=== PATIENT | female | born 1955 | race Caucasian/White ===

== ENCOUNTER → 2019-11-11 08:43 | Outpatient (CLI) | payer OTHER, SELFPAY ==
[2019-11-11 10:42] LABS: Coronavirus 19 IgG Antibody Negative (Negative); Coronavirus 19 IgM Antibody Negative (Negative)
== END ==
PROVIDERS: Visit Provider Surgery
DX: Z01.818 Encounter for other preprocedural examination (principal); Z12.11 Encounter for screening for malignant neoplasm of colon
CPT/HCPCS: 36415; 86328

== ENCOUNTER 2019-11-12 06:25 | Day surgery (SDC) | payer OTHER, SELFPAY ==
[2019-11-08 14:04] VITALS: BMI 35.2
--- NOTE | 2019-11-12 06:44 | HMH.GSHP ---
HPI HPI: Patient presents for follow-up colonoscopy due to history of multiple adenomatous polyps. She is under the care of Dr. Cohen. She is a 64-year-old lady. I had performed colonoscopy as initial screen in November 2013. At that time she had 7 tubular adenomas and 1 of them had high-grade dysplasia. She underwent follow-up colonoscopy on 04/05/2016. At that time she had a couple of tubular adenomas. Given the adenomatous polyps and previous history of multiple adenomatous polyps 1 of which had high-grade dysplasia I had recommended a 3-year follow-up. She is without complaints. [facility] History I have reviewed the patient's past medical history: Yes Medical History: Denies:: Cancer, Diabetes Mellitus Type 1, Diabetes Mellitus Type 2, Internal Pacemaker, MRSA *Have you ever received a pneumonia vaccine?: No *Have you received a flu vaccine this season?: Yes (2018) Laterality Cases: Left: Lumpectomy Other Surgeries: Yes: Colonoscopy. No: Pacemaker Amputation: No Fractures: No - *Social History Last grade of school completed: High school graduate Smoking Status: Current every day smoker Tobacco Type: cigarettes # Packs/Day (cigarettes): 1 Alcohol Intake: never Substance Use Type: denies use *Occupational Status:: retired Housing: house Household Members: significant other *Travel in the last 8 weeks: None Family Hx:: Unable to obtain Review of Systems - Review of Systems Review of systems:: pertinent systems reviewed and negative unless documented below Meds Home Medications Medication Instructions Recorded Confirmed Type No Known Home Medications 11/08/19 11/12/19 History Allergies Allergy/AdvReac Type Severity Reaction Status Date / Time No Known Allergies Allergy Verified 11/08/19 14:03 Exam I & O for Last 24 hours: Intake & Output 11/09/19 11/10/19 11/11/19 11/12/19 11:59 11:59 11:59 11:59 Weight 225 lb - Constitutional no acute distress - *Routine HEENT Exam Head: Present: normocephalic Eye: Present: EOMI, PERRL ENT: Present: mucous membranes moist - *Routine Neck Exam Present: supple. Absent: lymphadenopathy - *Routine Respiratory Exam Present: CTA bilaterally - *Routine Cardiovascular Exam Present: RRR - *Routine Abdominal Exam Present: soft, normoactive bowel sounds. Absent: tenderness - *Routine Extremities Exam Absent: cyanosis, clubbing, edema - *Routine Skin Exam Present: warm. Absent: rash - *Routine Neurological Exam Present: alert, oriented X3 Assessment and Plan - Assessment and plan all Dx Assessment and Plan for all problems:: Colonoscopy due to history of polyps
[2019-11-12 06:45] VITALS: BP 179/85; PULSE 79; RESP 18; TEMP 36.1; O2SAT 96
[2019-11-12 07:14] VITALS: O2SAT 98
--- NOTE | 2019-11-12 07:21 | P.PN_ITS ---
[facility] Anesthesia Checklist - Patient Identification Patient Identification: Verbal (Name & ) - Structural Data Admitted From: Home Planned Operative Procedure/s: Colonoscopy Consent for Planned Operative Procedure(s) Verified: Yes Verified Documents: Surgical Consent, History and Physical - NPO Status Verified Time NPO: 00:00 - Chart Verification Results Verified: None - Additional verifications Anesthesia Reactions: No - Airway Assessment C-Spine Mobility Assessed: Yes (MP 3, TMD 3, thick neck) TMJ Mobility Assessed: Yes Dentition: Poor Dentition (Missing teeth) - Neurological Assessment Level of Consciousness: Awake, Alert, Appropriate, Follows Commands Hx Seizures: No Numbness or tingling in extremities: No - Anesthesia Plan Anesthesia Risk discussed: Yes Anesthesia Plan: Verified ASA Class: III Anesthesia Type: MAC [facility] History I have reviewed the patient's past medical history: Yes Medical History: Denies:: Cancer, Diabetes Mellitus Type 1, Diabetes Mellitus Type 2, Internal Pacemaker, MRSA, Seizures *Have you ever received a pneumonia vaccine?: No *Have you received a flu vaccine this season?: Yes (2019) Comment:: Obesity Anesthesia experience/problems:: No prior complications Laterality Cases: Left: Lumpectomy Other Surgeries: Yes: Colonoscopy. No: Pacemaker Amputation: No Fractures: No - *Social History Last grade of school completed: High school graduate Smoking Status: Current every day smoker Tobacco Type: cigarettes # Packs/Day (cigarettes): 1 Alcohol Intake: never Substance Use Type: denies use *Occupational Status:: retired Housing: house Household Members: significant other *Travel in the last 8 weeks: None Family Hx:: Unable to obtain
[2019-11-12 08:07] VITALS: BP 89/58; PULSE 71; RESP 12; TEMP 36.6; O2SAT 92
--- NOTE | 2019-11-12 08:10 | P.PCN_ITS ---
- Procedure: Date: 11/12/19 Procedure Performed:: Total colonoscopy to terminal ileum with polypectomy by snare Indications:: Patient presents for follow-up colonoscopy due to history of multiple adenomatous polyps. She is under the care of Dr. Cohen. She is a 64-year-old lady. I had performed colonoscopy as initial screen in November 2013. At that time she had 7 tubular adenomas and 1 of them had high-grade dysplasia. She underwent follow-up colonoscopy on 04/05/2016. At that time she had a couple of tubular adenomas. Given the adenomatous polyps and previous history of multiple adenomatous polyps 1 of which had high-grade dysplasia I had recommended a 3- year follow-up. She is without complaints. Performing Provider:: Christiano Tirado MD Referring Provider:: Rosales Cohen MD Sedation:: Propofol Procedure:: Patient was taken to endoscopy procedure room. She was positioned in lateral decubitus position. She had some minor excoriation and irritation of the perian al skin likely secondary to bowel preparation. Variable stiffness Olympus colonoscope was inserted via the anus. With some minor difficulty due to floppiness of the sigmoid colon it was advanced to the cecum. Ileocecal valve and appendiceal orifice were identified. Colonoscope was advanced briefly a short distance into the terminal ileum which appeared grossly normal. There was sticky adherent stool to the colonic mucosa most prominently in the right colon. This could not be completely irrigated free. Colonoscope was slowly withdrawn through the colon with careful surveillance. There was a tiny diminutive polyp in the ascending colon removed with biopsy forceps. There was a possible polyp near the hepatic flexure which was biopsied as it was slightly irregular mucosa. In the rectosigmoid region there were a couple hyperplastic appearing polyps removed with cold biopsy forceps. Retroflexion within the rectum revealed no evidence of any pathologic internal hemorrhoids. Colonoscope was withdrawn. Findings:: Suboptimal bowel preparation of the right colon Ascending colon polyp removed with biopsy forceps Possible hepatic flexure polyp biopsied Rectosigmoid polyp, likely hyperplastic, x2 removed with cold biopsy forceps Rare diverticuli Recommendations:: Pending pathology given prior history and suboptimal bowel preparation repeat colonoscopy 2 or 3 years. Would likely recommend several days of low residue diet and possibly more aggressive bowel preparation Complications:: None immediately apparent Estimated blood obtained (mL): 2
--- NOTE | 2019-11-12 08:14 | PC.NURSE ---
Oral airway present on arrival to postop
[2019-11-12 08:17] VITALS: BP 115/65; PULSE 63; RESP 12; O2SAT 92
--- NOTE | 2019-11-12 08:20 | PC.NURSE ---
Oral airway removed, pt tolerated well. Airway remains patent
[2019-11-12 08:27] VITALS: BP 119/79; PULSE 67; RESP 16; O2SAT 93
[2019-11-12 08:37] VITALS: BP 129/76; PULSE 69; RESP 16; TEMP 36.6; O2SAT 95
== END 2019-11-12 08:43 | disposition home or self-care (01) ==
LOC: OUTP 06:27
PROVIDERS: PCP Family Medicine; Visit Provider Surgery
PROC: 0DJD8ZZ Inspection of Lower Intestinal Tract, Via Natural or Artificial Opening Endoscopic (ICD-10-PCS; CPT 45380; principal; 2019-11-12 07:30)
DX: Z12.11 Encounter for screening for malignant neoplasm of colon (principal); K57.30 Diverticulosis of large intestine without perforation or abscess without bleeding; K63.5 Polyp of colon; Z87.19 Personal history of other diseases of the digestive system; E66.9 Obesity, unspecified; Z68.35 Body mass index [BMI] 35.0-35.9, adult; Z72.0 Tobacco use
CPT/HCPCS: 45380; J2704

== ENCOUNTER 2024-12-02 09:20 | Outpatient (CLI) | payer MEDICARE, OTHER, SELFPAY ==
[2024-12-02 13:34] LABS: Hematocrit 43.7 % (37.0-47.0); Hemoglobin 14.2 g/dL (12.2-16.2); Immature Granulocytes % 0.5 %; Mean Corpuscular HGB Conc 32.5 g/dL (31.8-35.4); Mean Corpuscular Hemoglobin 32.9 pg (27.0-31.2); Mean Corpuscular Volume 101.4 fl (81-99); Nucleated Red Blood Cells % 0 %; Platelet Count 199 K/mm3 (142-424); Red Blood Count 4.31 M/mm3 (4.20-5.40); Red Cell Distribution Width-SD 51.0 fL; White Blood Count 6.1 K/mm3 (4.8-10.8)
[2024-12-02 14:42] LABS: Alanine Aminotransferase 18 U/L (12-78); Albumin Level 4.3 g/dl (3.5-5.0); Albumin/Globulin Ratio 1.4 (1.1-1.8); Alkaline Phosphatase 86 U/L (38-126); Anion Gap 11.6 mEq/L (5-15); Aspartate Amino Transferase 22 U/L (14-36); Bilirubin,Total 1.1 mg/dl (0.2-1.3); Blood Urea Nitrogen 19 mg/dl (7-17); Calcium 9.1 mg/dl (8.4-10.2); Carbon Dioxide 26 mmol/L (22.0-30.0); Chloride 104 mmol/L (98-107); Cholesterol 227 mg/dl (140-200); Creatinine,Serum 1.20 mg/dl (0.52-1.04); Estimated Glomerular Filt Rate 45 ml/min (>60); GFR (African American) 54 ML/MIN (>60); Globulin 3.0 g/dL (1.3-3.2); Glucose 101 mg/dl (74-100); HDL Cholesterol 59 mg/dl (40-60); Magnesium 1.7 mg/dl (1.6-2.3); Potassium 4.6 mmoL/L (3.5-5.1); Sodium 137 mmol/L (136-145); Total Protein,Serum 7.3 g/dl (6.3-8.2); Triglycerides 168 mg/dl (30-150)
[2024-12-02 15:11] LABS: Thyroid Stimulating Hormone 2.62 uIU/mL (0.465-4.68)
[2024-12-02 15:30] LABS: Vitamin B12 303 pg/mL (239-931)
--- OUTSIDE RECORDS SUMMARY | 2024-12-03 11:16 | XMS_ITS ---
Author Organization Unknown Medications Date Medication Dosage DosageUnit StartDate StopDate StopReason Active DoseQuantity DoseUnit Dispense DispenseUnit Refills NdcCode DrugCode PharmacyId IsPrescription MappedMedication Srcstatus Custom 03/31 00:00 :00 Amoxicillin 500 MG Tablet 03/31/2022 00:00:00 1 20 Tablet 0 80361 226 301 P Start 03/31 00:00 :00 Diclofenac Sodium 50 MG Tablet Delayed Release 11/20/2014 00:00:00 0 90 0 [id number] 5 006 P Not Taking
[2024-12-03 12:13] LABS: Triiodothyronine (T3) Free 3.8 pg/mL (2.0-4.4)
== END 2024-12-02 23:59 | disposition home or self-care (01) ==
LOC: LAB.DROPOF 12-03 10:59
PROVIDERS: PCP Nurse Practitioner Family; Visit Provider Nurse Practitioner Family
DX: E78.5 Hyperlipidemia, unspecified (principal); R63.5 Abnormal weight gain; R10.13 Epigastric pain; Z11.4 Encounter for screening for human immunodeficiency virus [HIV]; Z13.220 Encounter for screening for lipoid disorders
CPT/HCPCS: 80053; 80061; 82607; 83735; 84443; 84481; 85025; 87389

== ENCOUNTER 2025-02-14 11:13 | Emergency (ER) | payer MEDICARE, SELFPAY ==
[2025-02-14 11:32] VITALS: BP 143/72; PULSE 76; O2SAT 97
[2025-02-14 11:36] VITALS: BP 143/72; PULSE 60; RESP 16; TEMP 36.5; O2SAT 97; BMI 37.3
--- NOTE | 2025-02-14 11:45 | HMH.EDGENADL ---
Discharge Plan Disposition Chief Complaint: PAIN Prescriptions Prescriptions: No Action No Known Home Medications Referrals Follow up/Referrals: Danica Arzola APRN [Primary Care Provider, Medical] - See instructions Print Language Print Language: Pashto Discharge ED Provider: Eric Delong Adult HPI General Chief complaint: PAIN Stated complaint: right leg pain Mode of Arrival: Wheelchair Source of Information: Patient and Spouse Description of Symptoms (Recalled from ER Triage Doc. by RN): Pt presents for evaluation of right leg pain that she has had for 3 days. Pt states the pain is in her upper leg and does not radiate anywhere. Rates pain as a 8/10, and has been taking ibuprofen every 6 hours. Pt states it is affecting her ability to ambulate, and she has had to steady herself on items around the house and has had to use a cane. Pt denies any injury History of Present Illness HPI narrative: Diane Sanderson is a 69y male with a history of hypertension, not currently on medications Related Data Home Medications ?Medication ?Instructions ?Recorded ?Confirmed No Known Home Medications 11/08/19 02/14/25 Allergies Allergy/AdvReac Type Severity Reaction Status Date / Time No Known Allergies Allergy Verified 02/14/25 10:32 [facility] Disclaimer: The information contained in this section may have been updated after the patient was seen, as this information can be updated by other users. Medical History Finger amputee Surgical History H/O toe surgery x3 History of hysterectomy Social History Smoking Status: Current every day smoker tobacco type: cigarettes packs per day: 1 smoking status start date: 1994 years smoked: 30 second hand exposure: Yes alcohol intake: never substance use type: denies use current occupational status: retired Travel in the last 8 weeks?: None household members: significant other housing: house current occupation: 3M caffeine: Yes Other Medical History Have you received the Flu Vaccine for this season: Yes (2019) Have you received the Pneumonia Vaccine: Yes Medical Decision Making Medical Records Screening: Per USPSTF and CDC recommendations, given the prevalence of disease in our region, it is our hospital?s policy to screen for HIV and viral Hepatitis for all patients aged 18 and over and those with ongoing risk factors. Vital Signs: 02/14/25 11:32 02/14/25 11:36 Temperature 97.7 F Temperature Source Oral Pulse Rate 76 Pulse Rate [Right] 60 Respiratory Rate 16 Blood Pressure 143/72 H Blood Pressure [Right Arm] 143/72 H Blood Pressure Mean [Right Arm] 95 Blood Pressure Source [Right Arm] Automatic Cuff Blood Pressure Position [Right Arm] Sitting 02 Sat by Pulse Oximetry 97 97 Oxygen Delivery Method Room Air Orders (Tests/Meds): ORDERS Category Date Time Status CT angio chest PE protocol Stat Cat Scan 02/14/25 11:43 Ordered BNP [NT Pro Brain Natriuretic Pep.] Stat Lab 02/14/25 11:43 Ordered CBC w/Auto Diff [Complete Blood Count Auto Diff] Stat Lab 02/14/25 11:43 Ordered CK [Creatine Kinase] Stat Lab 02/14/25 11:43 Ordered CMP [Comprehensive Metabolic Panel] Stat Lab 02/14/25 11:43 Ordered Magnesium Stat Lab 02/14/25 11:43 Ordered Troponin I Q3H Lab 02/14/25 14:45 Ordered Troponin I Q3H Lab 02/14/25 17:45 Ordered Troponin I Stat Lab 02/14/25 11:43 Ordered CA venous doppler LE LT Stat Y 02/14/25 11:43 Ordered
--- OUTSIDE RECORDS SUMMARY | 2025-02-14 11:50 | XMS_ITS ---
Author Organization Unknown ENCOUNTERS Encounter Performer Location Date Diagnosis Diagnosis Status Emergency [facility] [address] [place] [address] [id number] Pre Admit [facility] [address] [place] [address] [id number] *Note: Encounters from your own facility or health system may be excluded. Allergies, Adverse Reactions, Alerts Allergen Type Severity Identification Date Medications Name Date Quantity Days Supplied GPI Number
[2025-02-14 12:00] VITALS: BP 162/86; PULSE 68; O2SAT 95
--- NOTE | 2025-02-14 12:03 | ED_ITS ---
<Statement entered by Eric Delong MD - 02/14/25 17:36> I was consulted by the SHARON, and we discussed the complexity of the problems being addressed. I approve the treatment and management plan for this patient's care in the emergency department, thus performing a substantive portion of the medical decision making. Eric Delong MD Discharge Plan Disposition Patient Disposition: Home, Self-Care Condition: Good Prescriptions Prescriptions: No Action No Known Home Medications Referrals Follow up/Referrals: Danica Arzola APRN [Primary Care Provider, Medical] - See instructions Activity Restrictions/Add. Instructions Additional Instructions/Restrictions: You were evaluated on an emergency basis. It is very important that you follow- up with your primary care provider and any specialist who we discussed within the next 2 days in order to better assess your health more comprehensively. For example, incidental findings on imaging or laboratory results that were performed today may be discovered, which do not require immediate medical care, but may impact your health in the future. If your symptoms worsen or persist, please return to the emergency department immediately for reassessment. Take all medications as prescribed. In queue for allowing me to participate in your health care, and I hope you feel better soon. Clinical Impressions Clinical Impression: Pain in right thigh Instructions Patient Instructions: DI for Leg Pain Print Language Print Language: Zimbabwean Discharge ED Provider: Eric Delong Adult HPI General Chief complaint: PAIN Stated complaint: right leg pain Time Seen by Provider: 02/14/25 12:02 Mode of Arrival: Wheelchair Source of Information: Patient and Spouse Description of Symptoms (Recalled from ER Triage Doc. by RN): Pt presents for evaluation of right leg pain that she has had for 3 days. Pt states the pain is in her upper leg and does not radiate anywhere. Rates pain as a 8/10, and has been taking ibuprofen every 6 hours. Pt states it is affecting her ability to ambulate, and she has had to steady herself on items around the house and has had to use a cane. Pt denies any injury History of Present Illness HPI narrative: 69-year-old female with no past medical history presents emergency department with complaints of pain to the lateral aspect of her right thigh for the past 3 days. She denies any known injury to the area. She reports she has taken ibuprofen without relief of symptoms. She states she has not had any medication for pain this morning. She was seen at urgent care this morning and they sent her to ER for further evaluation. Related Data Home Medications ?Medication ?Instructions ?Recorded ?Confirmed No Known Home Medications 11/08/1901/19 Allergies Allergy/AdvReac Type Severity Reaction Status Date / Time No Known Allergies Allergy Verified 02/14/25 10:[address] [facility] Disclaimer: The information contained in this section may have been updated after the patient was seen, as this information can be updated by other users. 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 Have you lived/traveled outside US in past 30 days?: No Contact w/someone who lives/traveled outside US past 30 days?: No Exposure to someone with infectious disease in past 14 days?: No Do you have a fever (greater than 100.4 F or 38 C)?: No Have you tested positive for COVID-19?: No Exposed to someone with COVID-19 in past 14 days?: No Do you have a sore throat?: No Do you have a cough?: No Do you have any weakness?: No Do you have any diarrhea?: No Are you experiencing any unusual bleeding?: No Do you have any muscle aches/pain?: No Do you have any abdominal pain?: No Are you experiencing loss of taste or smell?: No Other Medical History Have you received the Flu Vaccine for this season: Yes (2018) Have you received the Pneumonia Vaccine: Yes ROS Obtained: Yes other Musculoskeletal Musculoskeletal: Reports other (Pain to right thigh) Physical Exam Narrative Physical exam: General: Awake, aware, in no acute distress HEENT: Normocephalic, no evidence of trauma CV: RRR, no murmurs, rubs, or gallops Pulm: CTA bilaterally with no rhonchi, rales, wheezes ABD: Nontender, no swelling, guarding, or rebound tenderness Psych, appropriate mood and affect Musculoskeletal: Patient reports tenderness on palpation to the lateral aspect of her right thigh. No erythema, ecchymosis, edema present. Patient with 2+ pulses in all extremities. General General appearance: alert Respiratory Respiratory exam: Present normal lung sounds bilaterally Cardiovascular Cardiovascular exam: Present regular rate Neurological Exam Neurological exam: Present alert Medical Decision Making Medical Records Screening: Per USPSTF and CDC recommendations, given the prevalence of disease in our region, it is our hospital?s policy to screen for HIV and viral Hepatitis for all patients aged 18 and over and those with ongoing risk factors. Nazario Inquiry Pt receiving controlled substance: No Vital Signs: 02/14/25 11:32 02/14/25 11:36 02/14/25 12:00 Temperature 97.7 F Temperature Source Oral Pulse Rate 76 68 Pulse Rate [Right] 60 Respiratory Rate 16 Blood Pressure 143/72 H 162/86 H Blood Pressure [Right Arm] 143/72 H Blood Pressure Mean [Right Arm] 95 Blood Pressure Source [Right Arm] Automatic Cuff Blood Pressure Position [Right Arm] Sitting 02 Sat by Pulse Oximetry 97 97 95 Oxygen Delivery Method Room Air 02/14/25 12:31 Temperature Temperature Source Pulse Rate 68 Pulse Rate [Right] Respiratory Rate Blood Pressure 179/86 H Blood Pressure [Right Arm] Blood Pressure Mean [Right Arm] Blood Pressure Source [Right Arm] Blood Pressure Position [Right Arm] 02 Sat by Pulse Oximetry 97 Oxygen Delivery Method Room Air Orders (Tests/Meds): ED MEDICATIONS Discontinued Medications Generic Name Dose Route Start Last Admin Trade Name Freq PRN Reason Stop Dose Admin Hydrocodone Bitart/Acetaminophen 1 tab 02/14/25 12:25 02/14/25 12:28 Hydrocodone/Apap 5/325 Mg Tablet PO 02/14/25 12:26 1 tab ONCE ONE Administration ORDERS Category Date Time Status CA venous doppler LE RT Stat Y 02/14/25 12:30 Completed Medical Decision Narrative: Initial impression of presenting illness: 69-year-old female presents emergency department with complaints of pain to the lateral aspect of her right thigh for the past 3 days. She denies any known injury to the area. She was seen at urgent care prior to coming to ER as they sent her here for evaluation for possible DVT. Patient states she has been taking ibuprofen without relief of symptoms. She has not had any medication for pain prior to arrival today. Differential diagnosis includes but is not limited to: Musculoskeletal strain, DVT, contusion Patient arrives hemodynamically stable, afebrile, without respiratory distress with vital signs interpreted by myself. Initial physical exam reveals tenderness on palpation to the lateral aspect of patient's right thigh. No ecchymosis, erythema, edema present to the area. Sensation is intact with 2+ pulses in all extremities. Rest of exam is unremarkable Initial diagnostic plan: [place] for pain control, ultrasound of right lower extremity for DVT rule out Results from initial plan were reviewed and interpreted by myself, pertinent positives include: Ultrasound of the right lower extremity was negative for DVT. Interventions in the ED: Patient was given [place]ova for pain control. Luis wrap was also applied to patient's right thigh for compression and comfort. Patient was made aware of the results and the findings, upon reevaluation patient has remained stable throughout stay, symptoms remained stable. Upon reevaluation patient is resting comfortably in bed with no signs of acute distress. Disposition: Reviewed finding today's workup with patient informed no acute abnormalities were noted on her ultrasound. Recommended that she continue to RICE the area and use Tylenol and ibuprofen as needed for pain control. Advised her if her symptoms or not improving over the next couple days to follow-up with her primary care provider for further evaluation. Instructed her to return to the emergency department with any new or worsening symptoms including uncontrolled pain, redness or swelling to the area. Patient was agreeable to plan of care. Patient made aware of findings and had a detailed discussion with symptomatic care and return precautions, patient voiced understanding. Critical Care Critical Care Time Critical Care Time: No
[2025-02-14] MEDS: HYDROCODONE/APAP 5/325 MG TABLET 1 TAB PO (12:28)
--- NOTE | 2025-02-14 12:30 | CA_ITS ---
FINAL REPORT CLINICAL HISTORY: RLE started hurting 02/12/25, denies trauma. 02/13/25 right leg pain was much worse resulting in having to use a cane. Pain is in the anterior right thigh. Smoker FINDINGS: DUPLEX VENOUS SONOGRAPHY OF THE RIGHT LOWER EXTREMITY Multiple transverse and longitudinal scans were performed of the femoropopliteal deep venous system, with augmentation and compression maneuvers. Normal phasic flow was noted in the visualized deep venous system. No intraluminal increased echogenicity is noted to suggest thrombus. There is normal compression and augmentation of the venous structures. No abnormal venous collaterals are seen. IMPRESSION: No evidence of deep venous thrombosis of the right lower extremity. Reviewed, Interpreted and Dictated by Dianne Castaneda MD Transcribed by Skyla Haas Authenticated and [facility]
[2025-02-14 12:31] VITALS: BP 179/86; PULSE 68; O2SAT 97
[2025-02-14 13:30] VITALS: BP 179/85; PULSE 63; RESP 18; TEMP 36.4; O2SAT 98
== END 2025-02-14 13:30 | disposition home or self-care (01) ==
PROVIDERS: Emergency Provider Student in an Organized Health Care Education/Training Program; PCP Nurse Practitioner Family
DX: M79.651 Pain in right thigh (principal); F17.210 Nicotine dependence, cigarettes, uncomplicated
CPT/HCPCS: 93971; 99284

== ENCOUNTER 2025-02-17 09:16 | Outpatient (CLI) | payer MEDICARE, SELFPAY ==
--- NOTE | 2025-02-17 09:22 | XR_ITS ---
FINAL REPORT TECHNIQUE: 4 views right femur CLINICAL HISTORY: right anterior thigh pain COMPARISON: None FINDINGS: RIGHT FEMUR: 4 images of the right femur were obtained. There is no evidence of fracture or dislocation. The joint spaces are intact. There is no soft tissue abnormality identified. IMPRESSION: No acute bony abnormality. Reviewed, Interpreted and Dictated by Dianne Castaneda MD Transcribed by Flora Ponce Authenticated and [facility]
== END 2025-02-17 23:59 ==
LOC: RAD 09:18
PROVIDERS: PCP Nurse Practitioner Family; Visit Provider Nurse Practitioner Family
DX: M79.651 Pain in right thigh (principal)
CPT/HCPCS: 73552

== ENCOUNTER 2025-02-18 15:02 | Outpatient (CLI) | payer MEDICARE, SELFPAY ==
--- NOTE | 2025-02-18 15:15 | MR_ITS ---
PROCEDURE INFORMATION: Exam: MR Right Lower Extremity Without Contrast, Femur Exam date and time: 02/18/2025 3:29 PM Age: 69 years old Clinical indication: Thigh; Right; Severe pain on distal femur on the lateral side. No known injury. Swelling. X 6 days; Additional info: Right anterior thigh pain TECHNIQUE: Imaging protocol: Magnetic resonance imaging of the right femur without contrast. COMPARISON: No relevant prior studies available. FINDINGS: Bones/joints: Suggestion of focal thickening of the lateral cortex involving the mid diaphysis of the femur. There is some adjacent bone marrow edema identified. Findings best seen on series 29, image 15. Query whether this could be related to an underlying osteoid osteoma. Would recommend a CT scan for further assessment. Soft tissues: Numerous venous varicosities along the medial thigh subcutaneous tissues IMPRESSION: 1. Numerous venous varicosities along the medial thigh subcutaneous tissues 2. Suggestion of focal thickening of the lateral cortex involving the mid diaphysis of the femur. There is some adjacent bone marrow edema identified. Findings best seen on series 29, image 15. Query whether this could be related to an underlying osteoid osteoma. Would recommend a CT scan for further assessment. 3. The remainder of the examination is unremarkable.
== END 2025-02-18 23:59 | disposition home or self-care (01) ==
LOC: RAD 15:03
PROVIDERS: PCP Nurse Practitioner Family; Visit Provider Nurse Practitioner Family
DX: I83.91 Asymptomatic varicose veins of right lower extremity (principal); R93.6 Abnormal findings on diagnostic imaging of limbs
CPT/HCPCS: 73718

== ENCOUNTER 2025-03-06 07:48 | Outpatient (CLI) | payer MEDICARE, SELFPAY ==
--- OUTSIDE RECORDS SUMMARY | 2025-03-06 07:56 | XMS_ITS ---
Author Organization Unknown ENCOUNTERS Encounter Performer Location Date Diagnosis Diagnosis Status Emergency [facility] [address] [place] [address] [id number] [place] Pre Admit [facility] [address] [place] [address] [id number] *Note: Encounters from your own facility or health system may be excluded. Allergies, Adverse Reactions, Alerts Allergen Type Severity Identification Date Medications Name Date Quantity Days Supplied GPI Number
--- NOTE | 2025-03-06 08:00 | CT_ITS ---
FINAL REPORT TECHNIQUE: Axial images of the right femur was obtained with and without contrast by computed tomography. Sagittal reconstructed images were obtained and reviewed. This study was performed with techniques to keep radiation doses as low as reasonably achievable, (ALARA). Individualized dose reduction techniques using automated exposure control or adjustment of mA and/or kV according to the patient's size were employed. CLINICAL HISTORY: Right upper extremity pain, abnormal MRI COMPARISON: MRI dated 02/18/2025 FINDINGS: No fractures identified. The cortex appears normal on this exam. There is no focal cortical thickening. There is no periosteal reaction. No bone lesions are identified. There is degenerative joint disease of the hip. On CT, the appearance of the soft tissues is without acute abnormality. No mass or fluid collection is identified. There are prominent superficial venous varicosities along the medial distal thigh and posterior to the knee. IMPRESSION: No bone lesions or focal cortical thickening. No acute soft tissue abnormality. Prominent superficial venous varicosities as above. Reviewed, Interpreted and Dictated by Dianne Castaneda MD Transcribed by Skyla Haas Authenticated and [facility]
[2025-03-06 08:13] LABS: Blood Urea Nitrogen 27 mg/dl (7-17); Creatinine,Serum 1.30 mg/dl (0.52-1.04); Estimated Glomerular Filt Rate 41 ml/min (>60); GFR (African American) 49 ML/MIN (>60)
[2025-03-06] MEDS: SODIUM CHLORIDE 0.9% 10ML SYR (RAD ONLY) 10 ML IV (08:40)
[2025-03-06] MEDS: IOPAMIDOL-370 (76%);100ML BOTTLE 100 ML IV (08:40)
[2025-03-06] MEDS: 0.9 % SODIUM CHLORIDE 50 ML VIAL IV (08:40)
== END 2025-03-06 23:59 | disposition home or self-care (01) ==
LOC: RAD 07:50
PROVIDERS: PCP Nurse Practitioner Family; Visit Provider Nurse Practitioner Family
DX: I83.91 Asymptomatic varicose veins of right lower extremity (principal); M79.651 Pain in right thigh; R26.89 Other abnormalities of gait and mobility; R93.89 Abnormal findings on diagnostic imaging of other specified body structures
CPT/HCPCS: 36415; 73702; 82565; 84520; Q9967